=== PATIENT | female | born 1965 | race Caucasian/White ===

== ENCOUNTER → 2016-09-20 | Outpatient (CLI) | payer MEDICARE, MEDICAID ==
[~2016-09-20] MED LIST: APRESOLINE 25MG25 MG PO; CALCITRIOL PO; CEFEPIME1 GM/50 ML IV; HEPARIN 50500 U/5 ML IV; LEVEMIR FLEX100 U/ML SQ; LEVEMIR SQ; NORCO 325 MG-51 TAB PO; NORCO 325 MG-7.1 TAB PO; NOVLOG SQ; NS INT FLUSH 1010 ML IV; SODIUM BICARBO650 MG PO; TUMS ULTRA1000 MG PO; TYLENOL 325MG325 MG PO; ULTRAM 50MG TAB50 MG PO
== END ==
LOC: COL.LAB 08:54
DX: Z53.9 Procedure and treatment not carried out, unspecified reason (principal)

== ENCOUNTER → 2016-09-27 | Outpatient (CLI) | payer MEDICARE, MEDICAID ==
[2016-09-27 11:14] LABS: URINE COLLECTION TIME 20 HOURS
[2016-09-27 23:17] LABS: PROTEIN TIMED URINE 503.5 mg/24hrs (0.0-299.0)
[2016-09-30 09:39] LABS: CREATININE, serum 2.29 mg/dL (0.52-1.25)
== END ==
LOC: COL.LAB 08:47
PROVIDERS: Internal Medicine Nephrology
DX: R80.8 Other proteinuria (principal)

== ENCOUNTER 2017-11-11 08:58 | Outpatient (CLI) | payer MEDICARE, MEDICAID ==
[2017-11-11] VITALS (10 sets, daily range): BP systolic 101–127; BP diastolic 61–83; PULSE 78–82; TEMP 97.6
[~2017-11-11] VITALS: Ht 172.8 cm; Wt 103.4 kg
== END 2017-11-11 14:00 | disposition home or self-care (01) ==
LOC: COL.CAR 08:58
DX: T82.898A Other specified complication of vascular prosthetic devices, implants and grafts, initial encounter (principal); N18.6 End stage renal disease; E11.22 Type 2 diabetes mellitus with diabetic chronic kidney disease
CPT/HCPCS: J2250; J3010; Q9967